=== PATIENT | male | born 1930 | race Caucasian/White ===

== ENCOUNTER → 2016-12-08 | Outpatient (CLI) | payer OTHER, MEDICARE | LOC: BMCIMAGING 14:52 | PROVIDERS: ATTEND Internal Medicine | DX: Z13.820 Encounter for screening for osteoporosis (principal); R05 Cough ==

== ENCOUNTER → 2017-03-25 | Outpatient (CLI) | payer OTHER, MEDICARE | LOC: BMCIMAGING 11:45 | PROVIDERS: ATTEND Family Medicine | DX: J44.9 Chronic obstructive pulmonary disease, unspecified (principal); J98.4 Other disorders of lung ==

== ENCOUNTER 2017-08-11 21:19 | Emergency (ER) | payer OTHER, MEDICARE ==
--- NOTE | 2017-08-11 22:06 | EDPHY ---
H & P Stated Complaint: Skin tears/abrasions to Chin, R elbow Time Seen by Provider: 08/11/17 21:49 HPI/ROS: Chief Complaint: Fall, chin abrasion, skin tear HPI: 86-year-old male and who had a mechanical fall when he tried to intervene between his dog and a neighbor's. Patient fell to the ground, landing on a sidewalk. He sustained an abrasion to his chin, skin tear to his right forearm an abrasion to his left forearm. He did not hit his head. He had no loss of consciousness. He is not taking any blood thinning medications. No headache. No nausea or vomiting. No neck pain. No numbness or weakness. No chest pain. No abdominal pain. No other extremity injuries. He has been ambulating unassisted otherwise. He denies any pain at this time. His neighbor did poor peroxide on the wounds prior to his presentation. ROS: 10 point Review of Systems is negative except as noted in the HPI. PMH: Diabetes Social History: No smoking, no alcohol, no recreational drug use Family History: non-contributory Physical Exam: Gen: Awake, Alert, Airway Intact HEENT: Head: Atraumatic Eyes: PERRLA, EOMI Nose: No epistaxis Mouth: Normal dentition, Airway patent Face: No deformity, patient has 2 small abrasions in the submental region of his right chin. There is no bony deformity. No mandibular tenderness. No intraoral deformity or injury. No trismus, full range of motion of his mandible without any difficulty Neck: non-tender, no stepoff, Full ROM without pain Chest: non-tender, lungs CTA Heart: normal heart tones Abd: soft, non-tender, atraumatic Pelvis: non-tender, stable to AP and Lateral compression Back: atraumatic, no midline tenderness Ext: Patient has a large skin tear on the radial aspect of his right proximal forearm. There is no bony deformity or injury. He has full range of motion, flexion, extension, pronation and supination without any difficulty. He is normal perfusion distally. Neurovascularly intact in the radial, median, and ulnar nerve distribution. Skin tear goes into the dermis only. It is approximately 5 cm x 3 cm. Patient has also has a small superficial abrasion on his left forearm, 2 cm x 4 cm. No skin avulsion Skin: no rash Neuro: CN II-XII intact, Strength 5/5 in all extremities, sensation intact in all extremities - Personal History Current Tetanus Diphtheria and Acellular Pertussis (TDAP): Yes Tetanus Vaccine Date: < 10 YEARS - Medical/Surgical History Hx Asthma: No Hx Chronic Respiratory Disease: No Hx Diabetes: Yes Hx Cardiac Disease: No Hx Renal Disease: No Hx Cirrhosis: No Hx Alcoholism: No Hx HIV/AIDS: No Hx Splenectomy or Spleen Trauma: No Other PMH: abd polyps, hernia repair fx neck in high school. D.M., HIGH CHOLESTEROL, - Social History Smoking Status: Former smoker Constitutional: Initial Vital Signs Temperature (C) 36.5 C 08/11/17 21:23 Heart Rate 60 08/11/17 21:23 Respiratory Rate 19 08/11/17 21:23 Blood Pressure 151/65 H 08/11/17 21:23 O2 Sat (%) 96 08/11/17 21:23 O2 Delivery Mode Room Air Allergies/Adverse Reactions: penicillin G Allergy (Severe, Verified 08/11/17 21:23) Rash nitrofurantoin Allergy (Verified 08/11/17 21:23) Unknown Home Medications: Medication Instructions Recorded ASPIRIN 03/05/16 B-12 03/05/16 Calcium Citrate/Magnesium/D3 03/05/16 Lisinopril 03/05/16 Lovastatin 03/05/16 Metoprolol Tartrate 03/05/16 Midodrine HCl 03/05/16 Nitrofurantoin 03/05/16 Omeprazole 03/05/16 Vit D3 03/05/16 ZINC 03/05/16 ZOLPIDEM TARTRATE 03/05/16 metFORMIN HCL 03/05/16 traZODone 03/05/16 Medical Decision Making ED Course/Re-evaluation: I have debrided is skin tear. He was dressed in a nonadherent dressing. Patient will be discharged with follow up with primary care physician, wound care has been provided. Departure - Departure Disposition: Home, Routine, Self-Care Clinical Impression: Abrasion, Skin tear of forearm without complication Condition: Good Instructions: Skin Tear (ED), Abrasion (ED) Additional Instructions: Keep the area clean and covered. Apply antibiotic ointment copiously twice a day. Follow up with your primary care physician in 3-4 days for further evaluation. Return to the emergency department for increasing pain, redness, fevers, headache, confusion, nausea, vomiting, numbness, weakness, or any other concerns. Referrals: Deon López MD [Primary Care Provider] - As per Instructions
[2017-08-11 22:34] VITALS: BP 147/74
== END 2017-08-11 22:34 | disposition home or self-care (01) ==
DX: S51.811A Laceration without foreign body of right forearm, initial encounter (principal); S00.81XA Abrasion of other part of head, initial encounter; E11.9 Type 2 diabetes mellitus without complications; Z79.82 Long term (current) use of aspirin; Z87.891 Personal history of nicotine dependence; Z79.84 Long term (current) use of oral hypoglycemic drugs; W18.39XA Other fall on same level, initial encounter; Y92.480 Sidewalk as the place of occurrence of the external cause; Y99.8 Other external cause status; Y93.89 Activity, other specified

== ENCOUNTER 2018-08-02 02:04 | Observation (INO) | payer OTHER, MEDICARE ==
--- NOTE | 2018-08-02 02:14 | EDPHY ---
H & P Stated Complaint: dry cough and spasms Time Seen by Provider: 08/02/18 02:14 HPI/ROS: HPI CHIEF COMPLAINT: Worsening cough. HISTORY OF PRESENT ILLNESS: Patient is a 87-year-old male, he arrives to the emergency room with a cough progressively getting worse over last week. He states this started Sunday. He did see his primary care doctor as well as generation engineer was recommend he takes cool-hdk-wrowobc cough medicine. He arrives to the emergency room tonight with worsening cough progressively getting worse over the last week. Here upon arrival brought back to ER room 3. Where it is noted he was 86% room air sat. Also has a wet sounding rhonchorous cough on exam. He does complain of generalized weakness and not feeling well. No fever. No vomiting. No diarrhea. Past Medical History: Significant medical history for hypertension, pneumonia, diabetes, history of sepsis Past Surgical History: No recent surgery Social History: Denies drugs alcohol tobacco. Resides in [facility]. Lives on his own independently. Family History: Noncontributory ROS REVIEW OF SYSTEMS: 10 Systems were reviewed and negative with the exception of the elements mentioned in the history of present illness. Exam Constitutional triage nursing summary reviewed, vital signs reviewed, awake/ alert. Eyes normal conjunctivae and sclera, EOMI, PERRLA. HENT normal inspection, atraumatic, moist mucus membranes, no epistaxis, neck supple/ no meningismus, no raccoon eyes. Respiratory rhonchorous sounding cough. Wet sounding cough. Cardiovascular rate normal, regular rhythm, no murmur, no edema, distal pulses normal. Gastrointestinal soft, non-tender, no rebound, no guarding, normal bowel sounds, no distension, no pulsatile mass. Genitourinary no CVA tenderness. Musculoskeletal no midline vertebral tenderness, full range of motion, no calf swelling, no tenderness of extremities, no meningismus, good pulses, neurovascularly intact. Skin pink, warm, & dry, no rash, skin atraumatic. Neurologic awake, alert and oriented x 3, AAOx3, moves all 4 extremities equally, motor intact, sensory intact, CN II-XII intact, normal cerebellar, normal vision, normal speech. Psychiatric normal mood/affect. Heme/Lymph/Immune no lymphadenopathy. Differential Diagnosis: Includes but is not limited to in a particular order viral syndrome, viral pneumonia, bacterial pneumonia, URI, CHF Medical Decision Making: Plan for this patient chest x-ray, basic labs, gentle IV fluids, blood cultures, lactic acid, DuoNeb breathing treatment and re- evaluate. Re-evaluation: CT angiogram of the chest reviewed and faxed me by direct Radiology at 3:50 a.m. This shows no evidence of pulmonary embolism. However does show basilar dependent ground-glass opacification patchy consolidation left lower lobe suspicious for developing pneumonia. Airway disease. Given patient's pneumonia on CT scan IV Rocephin IV azithromycin as been ordered. Blood cultures pending. Patient was hypoxic 86% here. Requiring supplemental oxygen 2 L nasal cannula. Plan for admission the hospital for pneumonia and hypoxia. EKG interpretation by me on record in [employer] system. Impression time of EKG 2:44 a.m. Sinus rhythm rate of 75 without any signs of acute ischemia. Updated patient agrees for admission. Reason for admission hypoxia pneumonia Spoke with the hospitalist service Dr. Herrera Agrees to admit. Source: Patient - Personal History Current Tetanus/Diphtheria Vaccine: Yes Current Tetanus Diphtheria and Acellular Pertussis (TDAP): Yes Tetanus Vaccine Date: < 10 YEARS - Medical/Surgical History Hx Asthma: No Hx Chronic Respiratory Disease: No Hx Diabetes: Yes Hx Cardiac Disease: No Hx Renal Disease: No Hx Cirrhosis: No Hx Alcoholism: No Hx HIV/AIDS: No Hx Splenectomy or Spleen Trauma: No Other PMH: abd polyps, hernia repair fx neck in high school. D.M., HIGH CHOLESTEROL,. - Social History Smoking Status: Former smoker Constitutional: Initial Vital Signs Temperature (C) 37.5 C 08/02/18 02:09 Heart Rate 86 08/02/18 02:09 Respiratory Rate 16 08/02/18 02:09 Blood Pressure 131/62 H 08/02/18 02:09 O2 Sat (%) 91 L 08/02/18 02:09 O2 Delivery Mode Nasal Cannula O2 (L/minute) 2 Allergies/Adverse Reactions: penicillin G Allergy (Severe, Verified 08/02/18 02:11) Rash nitrofurantoin Allergy (Verified 08/02/18 02:11) Unknown Home Medications: Medication Instructions Recorded ASPIRIN 03/05/16 B-12 03/05/16 Calcium Citrate/Magnesium/D3 03/05/16 Lisinopril 03/05/16 Lovastatin 03/05/16 Metoprolol Tartrate 03/05/16 Midodrine HCl 03/05/16 Nitrofurantoin 03/05/16 Omeprazole 03/05/16 Vit D3 03/05/16 ZINC 03/05/16 ZOLPIDEM TARTRATE 03/05/16 metFORMIN HCL 03/05/16 traZODone 03/05/16 Medical Decision Making - Data Points Laboratory Results: Laboratory Results 08/02/18 02:25 08/02/18 02:25 08/02/18 08/02/18 08/02/18 02:50 02:30 02:25 WBC RBC Hgb Hct MCV MCH MCHC RDW Plt Count MPV Neut % (Auto) Lymph % (Auto) [place] % (Auto) Eos % (Auto) Baso % (Auto) Nucleat RBC Rel Count Absolute Neuts (auto) Absolute Lymphs (auto) Absolute Monos (auto) Absolute Eos (auto) Absolute Basos (auto) Absolute Nucleated RBC Immature Gran % Immature Gran # PT 13.4 SEC SEC (12.0-15.0) INR 1.06 (0.83-1.16) APTT 32.5 SEC SEC (23.0-38.0) D-Dimer 0.81 ug/mLFEU H ug/mLFEU (0.00-0.50) VBG Lactic Acid Sodium Potassium Chloride Carbon Dioxide Anion Gap BUN Creatinine Estimated GFR Glucose Calcium POC Troponin I 0.01 ng/mL ng/mL (0.00-0.08) NT-Pro-B Natriuret Pep Procalcitonin Pending 08/02/18 08/02/18 08/02/18 02:25 02:25 02:25 WBC 15.10 10^3/uL H 10^3/uL (3.80-9.50) RBC 4.14 10^6/uL L 10^6/uL (4.40-6.38) Hgb 14.1 g/dL g/dL (13.7-17.5) Hct 40.6 % % (40.0-51.0) MCV 98.1 fL fL (81.5-99.8) MCH 34.1 pg pg (27.9-34.1) MCHC 34.7 g/dL g/dL (32.4-36.7) RDW 12.3 % % (11.5-15.2) Plt Count 179 10^3/uL 10^3/uL (150-400) MPV 11.2 fL fL (8.7-11.7) Neut % (Auto) 76.3 % H % (39.3-74.2) Lymph % (Auto) 12.2 % L % (15.0-45.0) [place] % (Auto) 9.6 % % (4.5-13.0) Eos % (Auto) 1.0 % % (0.6-7.6) Baso % (Auto) 0.4 % % (0.3-1.7) Nucleat RBC Rel Count 0.0 % % (0.0-0.2) Absolute Neuts (auto) 11.53 10^3/uL H 10^3/uL (1.70-6.50) Absolute Lymphs (auto) 1.84 10^3/uL 10^3/uL (1.00-3.00) Absolute Monos (auto) 1.45 10^3/uL H 10^3/uL (0.30-0.80) Absolute Eos (auto) 0.15 10^3/uL 10^3/uL (0.03-0.40) Absolute Basos (auto) 0.06 10^3/uL 10^3/uL (0.02-0.10) Absolute Nucleated RBC 0.00 10^3/uL 10^3/uL (0-0.01) Immature Gran % 0.5 % % (0.0-1.1) Immature Gran # 0.07 10^3/uL 10^3/uL (0.00-0.10) PT INR APTT D-Dimer VBG Lactic Acid 2.0 mmol/L mmol/L (0.7-2.1) Sodium 136 mEq/L mEq/L (135-145) Potassium 4.2 mEq/L mEq/L (3.5-5.2) Chloride 103 mEq/L mEq/L (97-110) Carbon Dioxide 22 mEq/l mEq/l (22-31) Anion Gap 11 mEq/L mEq/L (6-14) BUN 11 mg/dL mg/dL (7-23) Creatinine 0.7 mg/dL mg/dL (0.7-1.3) Estimated GFR > 60 Glucose 169 mg/dL H mg/dL (70-100) Calcium 8.9 mg/dL mg/dL (8.5-10.4) POC Troponin I NT-Pro-B Natriuret Pep 243 pg/mL pg/mL (0-450) Procalcitonin Medications Given: Ceftriaxone Sodium/Dextrose (Rocephin 1 Gm (Premix)) 50 mls @ 100 mls/hr IV EDNOW ONE PRN Reason: Protocol Stop: 08/02/18 04:21 Last Admin: 08/02/18 04:00 Dose: 50 mls Discontinued Medications Albuterol/Ipratropium (Duoneb) 3 ml IH EDNOW ONE Stop: 08/02/18 02:27 Last Admin: 08/02/18 02:32 Dose: 3 ml Sodium Chloride (Ns) 500 mls @ 1,000 mls/hr IV EDNOW ONE PRN Reason: Protocol Stop: 08/02/18 02:48 Last Admin: 08/02/18 02:31 Dose: 500 mls Point of Care Test Results: Chemistry 08/02/18 02:30 POC Troponin I 0.01 ng/mL ng/mL (0.00-0.08) Departure - Departure Disposition: [facility] [place] Inpatient Acute Clinical Impression: Pneumonia Condition: Fair
[2018-08-02] MEDS ORDERED: NS 500 ML IV ONE (02:19)
[2018-08-02] MEDS ORDERED: IPRATROPIUM/ALBUTEROL 3 ML DEYVIAL IH ONE (02:26)
[2018-08-02 02:36] LABS: PLATELET COUNT 179 10^3/uL (150-400)
[2018-08-02 03:06] LABS: INR 1.06 (0.83-1.16); PROTIME(PATIENT) 13.4 SEC (12.0-15.0)
[2018-08-02] MEDS ORDERED: IOPAMIDOL (ISOVUE 370) 100 ML BTL IV ONE (03:13)
[2018-08-02] MEDS ORDERED: AZITHROMYCIN IV 500 MG in NS 250 ML IV ONE (03:52)
[2018-08-02] MEDS ORDERED: ONDANSETRON DISINTEGRATING 4 MG TAB PO PRN (04:03)
[2018-08-02] MEDS ORDERED: ONDANSETRON 4 MG/2 ML VIAL IVP PRN (04:03)
[2018-08-02] MEDS ORDERED: ACETAMINOPHEN 325 MG TAB PO PRN (04:03)
[2018-08-02] MEDS ORDERED: GUAIFENESIN/DM 10 ML UDCUP PO PRN (04:05)
[2018-08-02] MEDS ORDERED: BENZONATATE 100 MG CAP PO PRN (04:05)
[2018-08-02] MEDS ORDERED: ALBUTEROL 3 ML DEYVIAL IH PRN (04:15)
--- NOTE | 2018-08-02 04:33 | PDGENHP ---
History and Physical - Chief Complaint Cough - History of Present Illness 87 yo M w/ hx of HTN and DM presents with a cough. The patient tells me he has had symptoms for 9 days now. He first noticed sinus congestion. Then, over the last 5 days he has developed a progressive cough. Since last night his cough has become severe and persistent. He denies fevers or confusion. In the ED his work-up is notable for a leukocytosis. CTPE was performed, which demonstrated possible early LLL pneumonia. He is mildly hypoxic. He is being admitted for observation and treatment. Case discussed with ED physician Dr. Henry; records reviewed and summarized above. History Information - Allergies/Home Medication List Allergies/Adverse Reactions: penicillin G Allergy (Severe, Verified 08/02/18 02:11) Rash nitrofurantoin Allergy (Verified 08/02/18 02:11) Unknown Home Medications: ASPIRIN 03/05/16 [Last Taken Unknown] B-12 03/05/16 [Last Taken Unknown] Calcium Citrate/Magnesium/D3 03/05/16 [Last Taken Unknown] Lisinopril 03/05/16 [Last Taken Unknown] Lovastatin 03/05/16 [Last Taken Unknown] Metoprolol Tartrate 03/05/16 [Last Taken Unknown] Midodrine HCl 03/05/16 [Last Taken Unknown] Nitrofurantoin 03/05/16 [Last Taken Unknown] Omeprazole 03/05/16 [Last Taken Unknown] Vit D3 03/05/16 [Last Taken Unknown] ZINC 03/05/16 [Last Taken Unknown] ZOLPIDEM TARTRATE 03/05/16 [Last Taken Unknown] metFORMIN HCL 03/05/16 [Last Taken Unknown] traZODone 03/05/16 [Last Taken Unknown] I have personally reviewed and updated: family history, medical history - Past Medical History diabetes type 2, hypertension - Surgical History Reports: hernia repair - Family History Positive for: diabetes type II - Social History Smoking Status: Former smoker Review of Systems Review of Systems: ROS: 10pt was reviewed & negative except for what was stated in HPI & below Physical Exam Physical Exam: Temp Pulse Resp BP Pulse Ox 37.2 C 78 16 117/66 95 08/02/18 04:03 08/02/18 04:03 08/02/18 04:03 08/02/18 04:03 08/02/18 04:03 Constitutional: appears nourished, uncomfortable Eyes: PERRL, EOMI Ears, Nose, Mouth, Throat: moist mucous membranes, no oral mucosal ulcers Cardiovascular: regular rate and rhythym, no murmur, rub, or gallop Respiratory: no respiratory distress, inspiratory crackles (Bibasilar) Gastrointestinal: normoactive bowel sounds, soft, non-tender abdomen Skin: warm, normal color Musculoskeletal: full muscle strength, no muscle tenderness Neurologic: AAOx3, CN II-XII Intact Psychiatric: interacting appropriately, not anxious Lab Data & Imaging Review 08/02/18 02:25 08/02/18 02:25 WBC 15.10 10^3/uL (3.80-9.50) H 08/02/18 02:25 RBC 4.14 10^6/uL (4.40-6.38) L 08/02/18 02:25 Hgb 14.1 g/dL (13.7-17.5) 08/02/18 02:25 Hct 40.6 % (40.0-51.0) 08/02/18 02:25 MCV 98.1 fL (81.5-99.8) 08/02/18 02:25 MCH 34.1 pg (27.9-34.1) 08/02/18 02:25 MCHC 34.7 g/dL (32.4-36.7) 08/02/18 02:25 RDW 12.3 % (11.5-15.2) 08/02/18 02:25 Plt Count 179 10^3/uL (150-400) 08/02/18 02:25 MPV 11.2 fL (8.7-11.7) 08/02/18 02:25 Neut % (Auto) 76.3 % (39.3-74.2) H 08/02/18 02:25 Lymph % (Auto) 12.2 % (15.0-45.0) L 08/02/18 02:25 [place] % (Auto) 9.6 % (4.5-13.0) 08/02/18 02:25 Eos % (Auto) 1.0 % (0.6-7.6) 08/02/18 02:25 Baso % (Auto) 0.4 % (0.3-1.7) 08/02/18 02:25 Nucleat RBC Rel Count 0.0 % (0.0-0.2) 08/02/18 02:25 Absolute Neuts (auto) 11.53 10^3/uL (1.70-6.50) H 08/02/18 02:25 Absolute Lymphs (auto) 1.84 10^3/uL (1.00-3.00) 08/02/18 02:25 Absolute Monos (auto) 1.45 10^3/uL (0.30-0.80) H 08/02/18 02:25 Absolute Eos (auto) 0.15 10^3/uL (0.03-0.40) 08/02/18 02:25 Absolute Basos (auto) 0.06 10^3/uL (0.02-0.10) 08/02/18 02:25 Absolute Nucleated RBC 0.00 10^3/uL (0-0.01) 08/02/18 02:25 Immature Gran % 0.5 % (0.0-1.1) 08/02/18 02:25 Immature Gran # 0.07 10^3/uL (0.00-0.10) 08/02/18 02:25 PT 13.4 SEC (12.0-15.0) 08/02/18 02:50 INR 1.06 (0.83-1.16) 08/02/18 02:50 APTT 32.5 SEC (23.0-38.0) 08/02/18 02:50 D-Dimer 0.81 ug/mLFEU (0.00-0.50) H 08/02/18 02:50 VBG Lactic Acid 2.0 mmol/L (0.7-2.1) 08/02/18 02:25 Sodium 136 mEq/L (135-145) 08/02/18 02:25 Potassium 4.2 mEq/L (3.5-5.2) 08/02/18 02:25 Chloride 103 mEq/L (97-110) 08/02/18 02:25 Carbon Dioxide 22 mEq/l (22-31) 08/02/18 02:25 Anion Gap 11 mEq/L (6-14) 08/02/18 02:25 BUN 11 mg/dL (7-23) 08/02/18 02:25 Creatinine 0.7 mg/dL (0.7-1.3) 08/02/18 02:25 Estimated GFR > 60 08/02/18 02:25 Glucose 169 mg/dL (70-100) H 08/02/18 02:25 Calcium 8.9 mg/dL (8.5-10.4) 08/02/18 02:25 POC Troponin I 0.01 ng/mL (0.00-0.08) 08/02/18 02:30 NT-Pro-B Natriuret Pep 243 pg/mL (0-450) 08/02/18 02:25 Visualized and Interpreted Chest x-ray results: Yes Chest X-Ray results: no infiltrate Assessment & Plan Assessment: 87 yo M w/ HTN and DM presents with cough and possible pneumonia. Plan: 1. LLL pneumonia - Per CT, possible early infiltrate in the LLL. He has a WBC of 15,000 but no other SIRS criteria. He has had viral URI symptoms for 9 days but cough has been worsening over the last 48 hours. - Admit for observation - S/p CTX, Azithro in the ED - Will hold further antibiotics pending additional work-up - Respiratory PCR, blood cultures, and procalcitonin ordered - Low threshold to restart CAP coverage noting possibly of post viral, bacterial pneumonia - Anti-tussives PRN 2. Hypoxia - Mild, requiring 2 L/min O2 to maintain O2 sats>89%. This is due to above. - Continue O2 PRN - Incentive spirometry ordered 3. DM - On metformin as an outpatient, continue pending reconciliation. 4. HTN - Continue metoprolol. Diet - Regular Code - Full Ppx - LMWH Dispo - Admit under observation status
[2018-08-02] MEDS ORDERED: METOPROLOL TARTRATE 25 MG TAB PO SCH (09:00)
[2018-08-02] MEDS ORDERED: TAMSULOSIN HCL 0.4 MG CAP PO SCH (09:00)
[2018-08-02] MEDS: ENOXAPARIN 40 MG/0.4 ML SYR SC SCH ×2 (10:01→10:05)
[2018-08-02] MEDS ORDERED: ALBUTEROL 60 PUFFS/8 GM MDI IH PRN (10:53)
[2018-08-02] MEDS ORDERED: predniSONE 20 MG TAB PO SCH (11:00)
[2018-08-02] MEDS ORDERED: guaiFENesin 600 MG TAB.ER PO SCH (11:00)
--- NOTE | 2018-08-02 11:03 | PDDCSUM ---
Discharge Summary Discharge Summary: The patient is a 77 you male who was admitted with SOB, cough, and mild hypoxemia. He had a CT chest which was c/w possible early LLL infiltrate. Viral PCR was negative. PC was negative. He feels better today. He has been started on steroids and bronchodilator. He has remained afebrile. BNP was negative. He had an unremarkable TTE recently with [place] [facility]. He does not have any signs of volume overload. As he is not requiring supplemental O2 and feels better overall, he will be d/c home on steroids and bronchodilator. He will f/u with his PCP in 1-2 weeks. #Viral Bronchits vs Viral LLL pneumonia #Hypoxemia, resolved #DM: he has been asked to hold Metformin for 48 hrs #HTN: home meds #BPH: home meds Exam: NAD AAOX3 MILD WHEEZE, NORMAL WORK OF BREATHING S/NT/ND NO LE EDEMA MEDS: SEE MED REC TOTAL TIME SPENT ON D/C IS 35 MINS
--- NOTE | 2018-08-02 11:54 | ASDISCHSUM ---
Discharge Information Plan Status:Home with No Needs Medically Cleared to Leave: Discharge Date: CM D/C Disposition:Home, Routine, Self-Care ADT D/C Disposition:Home, Routine, Self-Care Projected Discharge Date: Transportation at D/C: Discharge Delay Reason: Follow-Up Date: Discharge Slot: Final Diagnosis: Placement Information Patient Contact Information Contact Name:MACARIO Relationship:Kendell Address: City: [facility] Phone: State/Zip Code: Email: Financial Information Financial Class:Medicare Primary Plan Desc:MEDICARE OUTPATIENT Primary Plan Number:[id number] Secondary Plan Desc:DERIK/MIS SUPPLEMENT Secondary Plan Number:[id number] Assessment Information LACE LACE Length of stay for Answers: Less than 1 day current admission Comorbidities - select Answers: Diabetes (uncontrolled or all that apply controlled) Other Notes: HTN # of Emergency department Answers: 1-2 visits in the last 6 months Score: 3 Date Signed: 08/02/2018 11:53 AM Electronically Signed By:Ramona Madrigal Intervention Information
[2018-08-02 12:04] VITALS: BP 124/64
[2018-08-02] MEDS ORDERED: PANTOPRAZOLE SODIUM 40 MG TAB PO SCH (21:00)
[2018-08-02] MEDS ORDERED: PRAVASTATIN SODIUM 40 MG TAB PO SCH (21:00)
[2018-08-02] MEDS ORDERED: traZODone 50 MG TAB PO SCH (21:00)
--- NOTE | 2018-08-06 06:32 | CPEKG ---
Test Reason : OPEN Blood Pressure : / mmHG Vent. Rate : 075 BPM Atrial Rate : 075 BPM P-R Int : 203 ms QRS Dur : 101 ms QT Int : 395 ms P-R-T Axes : 056 029 026 degrees QTc Int : 442 ms Sinus rhythm Confirmed by Neli Sher ([id number]) on 08/06/2018 6:31:13 AM Referred By: Neil Sher Confirmed By:Neil Sher
== END 2018-08-02 14:04 | disposition home or self-care (01) ==
LOC: F3N 05:04
PROVIDERS: ADMIT Student in an Organized Health Care Education/Training Program; ATTEND Family Medicine
DX: R06.02 Shortness of breath (principal); R05 Cough; R09.02 Hypoxemia; E11.9 Type 2 diabetes mellitus without complications; I10 Essential (primary) hypertension; N40.0 Benign prostatic hyperplasia without lower urinary tract symptoms; Z87.891 Personal history of nicotine dependence; Z79.84 Long term (current) use of oral hypoglycemic drugs
CPT/HCPCS: 71045; 71275; 93005; G0378; J0456; J0696; J1650; J7512; Q9967; 84484-ER; 96365